=== PATIENT | male | born 1940 | race Caucasian/White ===

== ENCOUNTER 2018-05-03 12:21 | Outpatient (CLI) | payer MEDICARE ==
[~2018-05-03] VITALS: Ht 177.8 cm; Wt 80.7 kg
[2018-05-03] MEDS ORDERED: RANO500T3 PO (15:27)
[2018-05-03] MEDS ORDERED: VITA1CAP PO (15:27)
[2018-05-03] MEDS ORDERED: IBUP-1780 PO (15:27)
[2018-05-03] MEDS ORDERED: CALC250T2 PO (15:27)
[2018-05-03] MEDS ORDERED: CRV25T PO (15:27)
[2018-05-03] MEDS ORDERED: ASPI-999 PO (15:27)
[2018-05-03] MEDS ORDERED: LISI-552 PO (15:27)
[2018-05-03] MEDS ORDERED: OMEP20CA12 PO (15:27)
[2018-05-03] MEDS ORDERED: CHOL10007 PO (15:27)
[2018-05-03] MEDS ORDERED: FOLI0.8C PO (15:27)
[2018-05-03] MEDS ORDERED: CYAN1TAB26 PO (15:27)
[2018-05-03] MEDS ORDERED: ATOR80TA76 PO (15:27)
[2018-05-03] MEDS ORDERED: ALEN70TA2 PO (15:27)
== END 2018-05-03 15:33 | disposition home or self-care (01) ==
LOC: PREOP 12:21
PROVIDERS: ATTEND Orthopaedic Surgery
DX: Z01.818 Encounter for other preprocedural examination (principal)

== ENCOUNTER 2018-05-07 05:51 | Day surgery (SDC) | payer MEDICARE, OTHER ==
[~2018-05-07] VITALS: Ht 177.8 cm; Wt 80.7 kg
[~2018-05-07 05:51] MED LIST: ALEN70TA2 PO; ASPI-999 PO; ATOR80TA76 PO; CALC250T2 PO; CHOL10007 PO; CRV25T PO; CYAN1TAB26 PO; FOLI0.8C PO; IBUP-1780 PO; LISI-552 PO; OMEP20CA12 PO; RANO500T3 PO; VITA1CAP PO
[2018-05-07 06:15] VITALS: BP 141/79
[2018-05-07] MEDS ORDERED: LACTATED RINGERS 1,000 ML IV PRN (06:37)
[2018-05-07] MEDS ORDERED: ceFAZolin 2 GM IV Premixed 50 ML IV ONE (06:45)
[2018-05-07] MEDS ORDERED: SEVOFLURANE (ULTANE) 15 ML INHAL SOLN ONE (06:50)
[2018-05-07] MEDS ORDERED: LIDOCAINE PF 2% 2 ML (XYLOCAINE) VIAL ONE (06:50)
[2018-05-07] MEDS ORDERED: proPOfol 200 MG/20 ML (DIPRIVAN) VIAL IV ONE (06:50)
[2018-05-07] MEDS ORDERED: ROCURONIUM 10 MG/ML 5 ML SYRINGE IV ONE (06:50)
[2018-05-07] MEDS ORDERED: fentaNYL INJECTION 100 MCG/2 ML AMP ONE (06:51)
[2018-05-07] MEDS ORDERED: CLINDAMYCIN 600 MG/50 ML IVPB 50 ML IV ONE ×2 (07:27→07:30)
[2018-05-07] MEDS ORDERED: MIDAZOLAM 2 MG/2 ML (VERSED) VIAL ONE ×2 (07:33→07:50)
[2018-05-07] MEDS ORDERED: PROPOFOL INJECTION 50 ML IV ONE (08:01)
[2018-05-07] MEDS: BUP/EPI 0.5% 1:200,000 (SENSORCAINE) 30 ML VIAL ONE (08:16)
[2018-05-07] MEDS ORDERED: PHENYLEPHRINE 100 MCG/ML 10 ML (ANESTHESIA) SYR ONE (08:31)
--- NOTE | 2018-05-07 08:41 | Discharge Inst-Simple/Standard ---
Discharge Inst-Standard Patient Instructions/Follow Up Plan of Care/Instructions/FU: MAY RESUME ASPIRIN IN 3 DAYS AVOID BENDING OR LIFITING KEEP INCISIONS COVERED AND DRY Activity as Tolerated: No Discharge Diet: No Restrictions, ADA Diet Return to The Hospital For: FEVER CHILLS SHORTNESS OF BREATH CHEST PAIN SAEID DRAKE May 07, 2018 08:41
[2018-05-07 09:20] VITALS: BP 109/76
--- NOTE | 2018-05-07 09:38 | Diagnostic Imaging Report ---
INDICATION: Fluoroscopy during kyphoplasty. Fluoroscopy was provided in the OR during performance of the kyphoplasty. A total of 1 minute and 39 seconds of fluoroscopy was utilized for thoracic spine kyphoplasty. IMPRESSION: Fluoroscopy during kyphoplasty. Dictated by: Dictated on workstation # [id number]
[2018-05-07 09:50] VITALS: BP 127/74
--- NOTE | 2018-05-07 09:52 | OPERATIVE REPORT ---
DATE OF SERVICE: 05/07/2018 SURGEON: Karely Reyes DO. CHILD AND ADOLESCENT PSYCHOLOGIST: None. PREOPERATIVE DIAGNOSES: 1. Osteoporosis. 2. Vertebral compression fractures, T8-T9. POSTOPERATIVE DIAGNOSES: 1. Osteoporosis. 2. Vertebral compression fractures, T8-T9. PROCEDURES PERFORMED: 1. T8 kyphoplasty. 2. T9 kyphoplasty. 3. Biopsy of T8. COMPLICATIONS: Minor cement extravasation. ESTIMATED BLOOD LOSS: None. ANESTHESIA: Local anesthetic with IV sedation. SPECIMEN SENT: Vertebral body, T8. HISTORY OF PRESENT ILLNESS: The patient is a very pleasant 78-year-old gentleman, who presented to me with severe debilitating back pain. Bone scan demonstrated acute compression fractures of T8 and T9. The patient had an extensive cardiac history and was agreeable to kyphoplasty under local anesthetic. He understood that this was then ideal, but there was the only way he can safely undergo this procedure. He understood the risks and benefits. DESCRIPTION OF PROCEDURE: The patient was identified by name on wrist band in the preoperative holding area. His operative site was signed, consent was signed. SCDs were placed. Antibiotics were started. He was taken to the operating room theater and placed on the operating room table in the prone position. He was prepped and draped in usual sterile fashion. Formal timeout was then conducted. At this point, AP and lateral x-ray were centered over the pedicles the levels of interest. At this point, I made unilateral stab incisions to the right of midline. I advanced Jamshidi needles in T8 and T9 down the right pedicle and into the vertebral body. I obtained a vertebral body biopsy of T8. I passed the drill at both of these levels followed by a balloon. At this point, I placed cement into the vertebral bodies at both levels. I achieved good endplate fill. I did note some minor posterior cement extravasation at T8. I was finished, I removed the needles, obtained final AP and lateral x-ray and removed the needles, placed dressings, placed the patient in the supine position, took him to PACU where he awoke without incident. He tolerated the procedure well. PLAN: At this time, is to discharge the patient today. He knows to avoid any bending, twisting, pushing, pulling. Keep his wounds clean and dry. Job ID: [id number] DocumentID: [id number] Dictated Date: 05/07/2018 08:37:27 Business Transformation Analyst Date: 05/07/2018 09:51:04 Dictated By: KARELY REYES DO
[2018-05-07 10:20] VITALS: BP 127/79
[2018-05-07] MEDS ORDERED: LISI-552 PO (11:00)
--- NOTE | 2018-05-07 14:05 | Anesthesia-General Post-Op ---
MAC Patient Condition Mental Status/LOC: Same as Preop Cardiovascular: Satisfactory Nausea/Vomiting: Absent Respiratory: Satisfactory Pain: Controlled Complications: Absent Post Op Complications Complications None Follow Up Care/Instructions Patient Instructions None needed. Anesthesiology Discharge Order Discharge Order Patient is doing well, no complaints, stable vital signs, no apparent adverse anesthesia problems. No complications reported per nursing. ELIGIO HURLEY CRNA May 07, 2018 14:05
== END 2018-05-07 10:45 | disposition home or self-care (01) ==
LOC: SDC 05:51
PROVIDERS: ATTEND Orthopaedic Surgery
DX: M80.08XA Age-related osteoporosis with current pathological fracture, vertebra(e), initial encounter for fracture (principal); Z11.2 Encounter for screening for other bacterial diseases; I10 Essential (primary) hypertension; G47.9 Sleep disorder, unspecified; E78.5 Hyperlipidemia, unspecified; I25.10 Atherosclerotic heart disease of native coronary artery without angina pectoris; Z79.82 Long term (current) use of aspirin; Z95.810 Presence of automatic (implantable) cardiac defibrillator; Z86.73 Personal history of transient ischemic attack (TIA), and cerebral infarction without residual deficits; Z79.899 Other long term (current) drug therapy; Z95.1 Presence of aortocoronary bypass graft; Z98.61 Coronary angioplasty status
CPT/HCPCS: 87081